=== PATIENT | female | born 1940 | race Caucasian/White ===

== ENCOUNTER → 2020-12-22 | Day surgery (SDC) | payer MEDICARE ==
[~2020-12-22] VITALS: Ht 144.8 cm; Wt 41.7 kg
[~2020-12-22] MED LIST: ABILIFY5 MG PO; ATIVAN0.5 MG PO; LASIX20 MG PO; MIRTAZAPINE7.5 MG PO; PEPCID AC20 MG PO; POTASSIUM40 MEQ/11 PO; THERA-D100 MCG PO; TOPROL XL 50 MG50 MG PO; XARELTO15 MG PO; ZOLOFT50 MG PO; ZYRTEC10 MG PO
[2020-12-22 08:42] LABS: HGB 11.1 g/dl (12.5-16.0); MCH 31.7 pg (25.0-31.0); MCHC 32.6 g/dL (32.0-36.0); MCV 97.1 fL (78.0-100.0); MPV 10.6 fL (6.0-9.5); RBC 3.5 M/uL (4.20-5.40); RDW 13.3 % (11.5-14.0); WBC 6.7 K/uL (4.0-10.5)
[2020-12-22 08:58] LABS: ALBUMIN 3.7 g/dL (3.4-5.0); BILIRUBIN - TOTAL 0.8 mg/dL (0.2-1.0); BUN/CREAT RATIO (CALC) 18.9 RATIO; CREATININE 1.32 mg/dL (0.51-0.95); GLOBULIN (CALCULATION) 2.9 g/dL; POTASSIUM 3.9 mmol/L (3.5-5.1); TOTAL PROTEIN 6.6 g/dL (6.4-8.2)
== END | disposition home or self-care (01) ==
LOC: FAS 07:31
PROVIDERS: Orthopaedic Surgery
DX: S52.571A Other intraarticular fracture of lower end of right radius, initial encounter for closed fracture (principal); G56.01 Carpal tunnel syndrome, right upper limb; I10 Essential (primary) hypertension; Z88.5 Allergy status to narcotic agent; Z86.718 Personal history of other venous thrombosis and embolism; W19.XXXA Unspecified fall, initial encounter
CPT/HCPCS: 36415; 71045; 73100; 76000; 80053; 93005; C1713; C1769; J0690; J0735; J1100; J1885; J2250; J2405; J2704; J2795; J7120